=== PATIENT | female | born 1985 | race Two or more races ===

== ENCOUNTER → 2022-06-09 | Emergency (ER) | payer OTHER ==
[~2022-06-09] VITALS: Ht 172.7 cm; Wt 78.9 kg
== END | disposition home or self-care (01) ==
LOC: ER 14:06
DX: L55.0 Sunburn of first degree (principal); M79.606 Pain in leg, unspecified

== ENCOUNTER 2022-06-11 11:08 | Emergency (ER) | payer OTHER ==
[~2022-06-11] VITALS: Ht 172.7 cm; Wt 78.9 kg
== END 2022-06-11 13:12 | disposition home or self-care (01) ==
LOC: ER 11:08
DX: L55.0 Sunburn of first degree (principal)